=== PATIENT | female | born 1995 | race Caucasian/White ===

== ENCOUNTER 2017-12-09 15:20 | Emergency (ER) | payer BC | END 2017-12-09 17:06 | disposition left against medical advice (07) | LOC: UCCORT 15:20 | DX: Z32.00 Encounter for pregnancy test, result unknown (principal); Z53.21 Procedure and treatment not carried out due to patient leaving prior to being seen by health care provider ==

== ENCOUNTER 2018-03-23 15:08 | Emergency (ER) | payer BC ==
[2018-03-23 15:38] VITALS: BP 114/64
--- NOTE | 2018-03-23 16:20 | ED ---
Lower Extremity - HPI Summary HPI Summary: 22 yr old female with the complaint of bilateral leg redness, sunburn and now left calf pain after riding down and back to [place] in a car last weekend. She is 20 weeks . No SOB, or CP. Pain in left leg worse if it is not elevated. She states [place] the [place] on on [place]. - History of Current Complaint Chief Complaint: [facility] Stated Complaint: LEFT LEG - SWOLLEN/PAINFUL Time Seen by Provider: 03/23/18 16:03 Hx Last Menstrual Period: 3 weeks Pain Intensity: 10 - Allergies/Home Medications Allergies/Adverse Reactions: Allergies Allergy/AdvReac Type Severity Reaction Status Date / Time No Known Allergies Allergy Verified 03/23/18 15:38 Home Medications: Home Medications Acetaminophen [Acetaminophen Extra Strength] 1,000 mg PO Q4HR PRN 03/23/18 [ History Confirmed 03/23/18] Ibuprofen TAB* [Advil TAB*] 400 mg PO Q6H PRN 03/23/18 [History Confirmed ] [id number]/Iron Fum/Folic/Docusate [ 19] 1 tab PO DAILY 03/23/18 [History Confirmed 03/23/18] PMH/Surg Hx/FS Hx/Imm Hx - Surgical History Surgery Procedure, Year, and Place: tonsils at age 9yrs Infectious Disease History: No Infectious Disease History: Denies: Traveled Outside the [place] in Last 30 Days - Family History Known Family History: Positive: None - Social History Occupation: Employed Full-time Alcohol Use: None Substance Use Type: Reports: None Smoking Status (MU): Never Smoked Tobacco Review of Systems Constitutional: Negative Negative: Chest Pain Negative: Shortness Of Breath Positive: Edema - left leg All Other Systems Reviewed And Are Negative: Yes Physical Exam Triage Information Reviewed: Yes Vital Signs On Initial Exam: Initial Vitals Temp Pulse Resp BP Pulse Ox 100.1 F 94 16 114/64 99 03/23/18 15:29 03/23/18 15:29 03/23/18 15:29 03/23/18 15:29 03/23/18 15:29 Vital Signs Reviewed: Yes Appearance: Positive: Well-Appearing, No Pain Distress Skin: Positive: Other - erythema both legs lower with some tenderness over the left calf area. Head/Face: Positive: Normal Head/Face Inspection Eyes: Positive: EOMI ENT: Positive: Normal ENT inspection Neck: Positive: Nontender Respiratory/Lung Sounds: Positive: Clear to Auscultation, Breath Sounds Present Cardiovascular: Positive: RRR, Leg Edema Left - with tenderness left calf.. Negative: Murmur Abdomen Description: Positive: Nontender Musculoskeletal: Positive: Strength/ROM Intact, Edema Left, Edema Right Neurological: Positive: Sensory/Motor Intact, Alert, Oriented to Person Place, Time, CN Intact II-III Psychiatric: Positive: Normal Diagnostics - Vital Signs Vital Signs Temp Pulse Resp BP Pulse Ox 03/23/18 15:29 100.1 F 94 16 114/64 99 - Laboratory Lab Statement: Any lab studies that have been ordered have been reviewed, and results considered in the medical decision making process. 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 She refuses ambulance transport with the understanding of possible PE from clot breaking off. She states she will driver guide herself to the ER. - Diagnoses Provider Diagnoses: Pain of left calf, Leg edema, left Discharge - Sign-Out/Discharge Documenting (check all that apply): Discharge/Admit/Transfer - Discharge Plan Condition: Good Disposition: TRANS [facility] OF CARE FAC Patient Education Materials: Leg Edema (ED) Referrals: Ángel BLACK,Michael Hernandez [Primary Care Provider] - Additional Instructions: You need to immediately go to the ER for an ultrasound of you leg. Be sure that you do not delay. You have been offered an ambulance but declined this method of transport to the ER and your preference is to drive. - Billing Disposition and Condition Condition: GOOD Disposition: EMTALA
== END 2018-03-23 16:27 | disposition short-term general hospital (02) ==
LOC: UCCORT 15:08
DX: O26.892 Other specified pregnancy related conditions, second trimester (principal); M79.662 Pain in left lower leg; O12.02 Gestational edema, second trimester; Z3A.20 20 weeks gestation of pregnancy
CPT/HCPCS: 99211; G0463